=== PATIENT | male | born 1990 | race Caucasian/White ===

== ENCOUNTER 2019-07-03 20:33 | Emergency (ER) | payer SELFPAY ==
[2019-07-03 20:34] VITALS: BP 137/93; PULSE 92; RESP 16; TEMP 36.3; O2SAT 99; BMI 32.9
--- NOTE | 2019-07-03 21:00 | RAD_ITS ---
STUDY: X-RAY - LEFT KNEE REASON FOR EXAM: Male, 29 years old. Pain TECHNIQUE: 4 view(s) of the knee. COMPARISON: None. FINDINGS: Normal visualized distal femur. Normal visualized proximal tibia and fibula. Normal proximal tibiofibular articulation. Normal medial femorotibial compartment. Normal lateral femorotibial compartment. Normal patellofemoral articulation. Trace suprapatellar effusion. The soft tissue structures are unremarkable. RAD/Knee 4 or More Views IMPRESSION: Trace effusion of the knee. Electronically Signed: Rodney Latif DO at 21:12 EDT Tel [phone], Service support ,
--- NOTE | 2019-07-03 21:09 | ED.VISSUMM ---
- ER Visit Summary Date of Service: 07/03/19 Chief Complaint: Left knee pain History of Present Illness: The patient is a 29 M with no primary care physician. He reports he has left knee pain again approximately 5 days ago. He denies any trauma. No fall, MVA, or change in activity. He reports that this is sharp pain when he wakes up in the morning that seems to get better with a few steps. And has a dull pain most of the day. However, he reports that if he steps wrong or goes down the steps his pain is much worse. Pain is 8 out of 10 at worst and 5-10 currently. Physical Examination: Vitals: Stable. Afebrile. General: Well-nourished and well-developed. Head: Normocephalic atraumatic. Neck: Supple, no lymphadenopathy. No JVD. Nontender. Cardiovascular: Regular rate and rhythm. No murmurs. Respiratory: No respiratory distress. Clear to auscultation bilaterally. Abdominal: Soft, nontender, nondistended, normal bowel sounds. No guarding, rebound, or peritoneal signs. Back: Nontender. Extremities: Left knee: No appreciable effusion. He does have mild tenderness palpation over the medial side of his knee. He has full range of motion without difficulty. No pain or ligamentous instability with anterior/posterior drawer or medial/lateral stress. Does have a positive Damián with his foot rotated laterally. Skin: Normal color, no rash. Neurologic: Alert and oriented ?3. Cranial nerves II through XII are intact. Normal strength and sensation. Psych: Normal affect. Test Results: Patient x-ray shows a trace effusion but no fracture. Emergency Department Course and Treatment: The patient was treated with naproxen. He refused crutches. Treatment Plan: Patient will be discharged instructions for Dr. Walker in 1 week if not improving. He was given naproxen for pain. I did have a prolonged discussion to him that it is likely meniscal in origin and that he may need an MRI for further evaluation. Return to the emergency department for any worsening symptoms. Disposition: To home in improved and stable condition. Impression: 1. Left knee pain, acute. This note was generated with [employer] dictation software. It may contain incorrect words, spelling, and punctuation that were not noted in review of the chart prior to signing ED Disposition - Plan for ED Patient: Disposition: Home or Assisted Living Instructions: KNEE PAIN, Uncertain Cause Prescriptions: Naproxen [Naprosyn] 500 mg PO BID #20 tab Prescription Printed Referrals: Sudarshan Walker DO [STAFF PHYSICIAN] - 1 Week if not improving
[2019-07-03 21:17] VITALS: RESP 16; O2SAT 98
== END 2019-07-03 21:16 | disposition home or self-care (01) ==
LOC: ED 21:29
PROVIDERS: Emergency Provider Emergency Medicine
DX: M25.562 Pain in left knee (principal); Z72.0 Tobacco use
CPT/HCPCS: 73564; 99282

== ENCOUNTER 2019-10-25 00:37 | Emergency (ER) | payer SELFPAY ==
[2019-10-25 00:38] VITALS: BP 141/75; PULSE 89; RESP 18; TEMP 36.9; O2SAT 97; BMI 35.9
--- NOTE | 2019-10-25 00:59 | ED.VISSUMM ---
- ER Visit Summary Date of Service: 10/25/19 Chief Complaint: Atraumatic right Achilles pain History of Present Illness: The patient is a 29 M history of tendinitis. Complaining of 4-day history of pain in his right Achilles area. No fall, injury or trauma. No prior history. He is able to walk is more comfortable. He does a lot of walking at work. Denies any calf pain. No swelling. No history of DVT or PE or risk factors. Physical Examination: Young male no acute distress vital signs stable afebrile. HEENT exam unremarkable. Lungs are clear. Heart regular rate and rhythm no murmur. Abdomen soft nontender. He is moving all 4 extremities. Neurovascular intact. Along his right Achilles he has tenderness. Minimal swelling. There is no signs of Achilles rupture. Calf itself is nontender without edema or cords. Right foot is neurovascular intact with full dorsi and plantar flexion. Increased Achilles tendon pain with entire flexion. Is a normal DP pulse. The foot is nontender nonswollen. Neurovascular intact. Test Results: None Emergency Department Course and Treatment: History and exam are consistent with Achilles tendinitis. Treatment Plan: Ice, rest and anti-inflammatories. He has crutches at home. Follow-up if not improving. Disposition: Discharge Impression: Acute right Achilles tendinitis This note was generated with [employer] dictation software. It may contain incorrect words, spelling, and punctuation that were not noted in review of the chart prior to signing ED Disposition - Plan for ED Patient: Referrals: Care Physician,No Primary [Primary Care Provider] -
--- NOTE | 2019-10-25 01:01 | DCINST.ED_ITS ---
ED Disposition - Plan for ED Patient: Disposition: Home or Assisted Living Instructions: Tendonitis Referrals: Palmer De Leon MD [STAFF PHYSICIAN] - 1 Week if not improving Additional Instructions: Ice to your right Achilles. Motrin 600 mg 3-4 times a day for pain and inflammation. Use your home crutches to rest your right Achilles tendon. Follow-up if not improving. If you need a shoulder specialist for your left shoulder Dr. Hubert Nichole at [facility]
[2019-10-25 01:13] VITALS: BP 141/75; PULSE 89; RESP 18; O2SAT 97
== END 2019-10-25 01:14 | disposition home or self-care (01) ==
LOC: ED 01:09
PROVIDERS: Emergency Provider Emergency Medicine
DX: M76.61 Achilles tendinitis, right leg (principal); Z72.0 Tobacco use
CPT/HCPCS: 99282

== ENCOUNTER 2020-01-27 10:37 | Emergency (ER) | payer BC, SELFPAY ==
[2020-01-27 10:38] VITALS: BP 123/77; PULSE 100; RESP 18; TEMP 36.2; O2SAT 100; BMI 33.0
--- NOTE | 2020-01-27 10:56 | RAD_ITS ---
STUDY: X-RAY - LUMBAR SPINE REASON FOR EXAM: Male, 30 years old. LOW BACK PAIN AFTER HEAVY LIFTING X 1 DAY TECHNIQUE: 3 view(s) of the lumbar spine were obtained. COMPARISON: None FINDINGS: There is straightening of the normal lumbar lordosis. There is no substantial scoliosis. There is a normal alignment of the vertebrae. Mild degree of spondylosis at the L3-L4 and L4-L5 levels. Normal disc space heights. The soft tissue structures are unremarkable. RAD/Lumbar Spine 2 or 3 Views IMPRESSION: Loss of the normal lumbar lordosis. Mild degree of spondylosis at the L3-L4 and L4-L5 levels. Electronically Signed: Gilbert Bullock, at 11:40 EDT , Service support ,
--- NOTE | 2020-01-27 10:56 | ED.VIS.GEN ---
History of Present Illness Chief Complaint: Back Informant: Patient Narrative: Patient presents the emergency department with a 1 day history of low back pain. States it began suddenly when he was attempting to push a 400 pound roll of material while at work. He states he felt it immediately. He states it is nonradiating. He denies any bowel or bladder dysfunction. He denies any back surgery. No IV drug use or recent injections. He denies any previous trauma to the back. Past Medical History - Allergies and Home Meds Allergies/Adverse Reactions: Allergies No Known Allergies Allergy (Verified 01/27/20 10:38) Primary Care Physician: Care Physician,No Primary [Primary Care Provider] - Smoking Status: Current every day smoker Review of Systems General: Denies: Chills, Fever, Sweats Eyes: Denies: Visual changes - bilaterally, Diplopia ENT: Denies: Rhinorrhea, Sore throat Cardiovascular: Denies: Chest pain, Palpitations Respiratory: Denies: Dyspnea, Cough, Dyspnea on exertion Gastrointestinal: Denies: Abdominal pain, Nausea, Vomiting, Diarrhea, Melena, Hematochezia Genitourinary: Denies: Dysuria, Hematuria, Frequency Musculoskeletal: Reports: Back pain. Denies: Extremity Pain Skin: Denies: Rash, Wounds Neurological: Denies: Headache, Weakness, Parasthesia, Numbness Physical Exam Vital Signs/Narrative: Vital Signs Temp Pulse Resp BP Pulse Ox 01/27/20 10:38 97.2 F L 100 18 123/77 H 100 Inital Vital Signs reviewed: Yes General: Well nourished, Well developed, No Acute Distress Head: Normocephalic, Atraumatic Eyes: Perrl, EOMI ENT: Moist mucous membranes, No rhinorrhea Neck: Supple, Nontender Cardiovascular: Regular rate, Regular rhythm, No murmurs Respiratory: No distress, CTA bilaterally, Chest nontender Abdomen: Soft, Nontender, Nondistended, Normal bowel sounds Back: - - Patient has tenderness to palpation of the lumbar paraspinal musculature. DTR intact Extremities: Nontender, No edema Skin: Normal color, No rash Neurological: Alert, Oriented x3, Cranial nerves II-XII grossly intact, Normal Strength, Normal Sensation, Normal DTR, - - Patient is pacing around the room occasionally leaning on the sink. Psychological: Normal affect, Normal Mood ED Disposition - Plan for ED Patient: Disposition: Home or Assisted Living Diagnosis: Strain of lumbar paraspinal muscle Instructions: Back Sprain/Strain Prescriptions: Oxycodone HCl/Acetaminophen [Percocet 5/325] 1 tablet PO Q6H PRN PRN 3 Days #12 tablet PRN Reason: Pain Transmission Status: Received by [facility] Ketorolac [Toradol] 10 mg PO Q8H PRN #15 tab PRN Reason: pain Transmission Status: Pending to [facility] [address] Diazepam [Valium] 5 mg PO Q8 PRN #15 tablet PRN Reason: Muscle Spasm Transmission Status: Received by [facility] Referrals: Dennis Cochran MD [STAFF PHYSICIAN] - (call to arrange follow up)
[2020-01-27] MEDS: diazePAM 5 MG Tablet PO (11:07)
[2020-01-27] MEDS: morphine 10 MG/ML Syringe IM (11:08)
[2020-01-27] MEDS: Ketorolac 60 MG/2 ML Vial IM (11:08)
[2020-01-27 12:04] VITALS: BP 120/65; PULSE 74; RESP 18; O2SAT 99
== END 2020-01-27 12:05 | disposition home or self-care (01) ==
LOC: ED 11:11
PROVIDERS: Emergency Provider Emergency Medicine
DX: S39.012A Strain of muscle, fascia and tendon of lower back, initial encounter (principal); F17.200 Nicotine dependence, unspecified, uncomplicated; X50.9XXA Other and unspecified overexertion or strenuous movements or postures, initial encounter
CPT/HCPCS: 72100; 96372; 99282

== ENCOUNTER 2020-08-08 20:20 | Emergency (ER) | payer BC, SELFPAY ==
[2020-08-08 20:20] VITALS: BP 139/87; PULSE 97; RESP 20; TEMP 36.2; O2SAT 99; BMI 33.5
== END 2020-08-08 22:38 | disposition left against medical advice (07) ==
PROVIDERS: Emergency Provider Emergency Medicine
DX: Z53.21 Procedure and treatment not carried out due to patient leaving prior to being seen by health care provider (principal)

== ENCOUNTER 2020-10-08 22:07 | Emergency (ER) | payer BC, SELFPAY ==
[2020-10-08 22:08] VITALS: BP 139/88; PULSE 98; RESP 16; TEMP 36.1; O2SAT 99; BMI 33.9
--- NOTE | 2020-10-08 22:25 | ED.DCSUM_ITS ---
History of Present Illness Chief Complaint: Upper Extremity Injury Informant: Patient Onset: Days - 4 days Context: Gradual Onset Narrative: Patient presents with left shoulder pain worse over the past 4 days. He has a history of chronic left shoulder pain. He reports having an AC joint separation followed by surgery for bone spurs approximately 8 years ago. He states he fell on his shoulder about 2 months after his surgery and has had intermittent pain and spasms in that shoulder since that time. Over the past 4 days has had increased pain. He has not been able to raise his arm above his head or place it behind his back. 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 Past Medical History - Allergies and Home Meds Allergies/Adverse Reactions: Allergies No Known Allergies Allergy (Verified 10/08/20 22:11) Primary Care Physician: Care Physician,No Primary [Primary Care Provider] - Past Medical History: None Surgical History: - - Bone spurs left shoulder Smoking Status: Current every day smoker Review of Systems General: Denies: Chills, Fever Eyes: Denies: Visual changes - bilaterally ENT: Denies: Bilateral ear pain Cardiovascular: Denies: Chest pain Respiratory: Denies: Dyspnea, Cough Gastrointestinal: Denies: Abdominal pain Musculoskeletal: Reports: Extremity Pain Skin: Denies: Rash Neurological: Reports: Parasthesia - Occasional paresthesias, none currently Hematologic: Denies: Easy bruising, Easy bleeding Allergy: Denies: Uticaria Physical Exam Vital Signs/Narrative: Vital Signs Temp Pulse Resp BP Pulse Ox 10/08/20 22:08 97 F L 98 16 139/88 H 99 Inital Vital Signs reviewed: Yes General: Well nourished, Well developed Head: Normocephalic ENT: Moist mucous membranes Neck: Supple Cardiovascular: Regular rate, Regular rhythm Respiratory: No distress, CTA bilaterally Abdomen: Soft, Nontender Extremities: - - Focal tenderness over the AC joint of the left shoulder. Decreased range of motion, only able to abduct left shoulder to 90 degrees. Strong distal pulses. Skin: Normal color Neurological: Alert, Oriented x3, - - Strong hand grasp. Decreased range of motion left shoulder secondary to pain. Psychological: Normal affect Diagnostic/Tx/Re-eval Left shoulder x-rays per my review reveal no acute fracture. Joint spaces are clean with no obvious abnormalities. - Medical Decision Making Patient was given naproxen here for pain. Based on his symptoms I do feel he likely has tenderness or ligamentous injury. He will be given a sling and instructed, to have it a few times a day to work on range of motion. He was referred to Dr. Wallace, on-call for orthopedics. ED Disposition - Plan for ED Patient: Disposition: Home or Assisted Living Diagnosis: Sprain of left shoulder Instructions: ED Shoulder Sprain Prescriptions: Naproxen [Naprosyn] 500 mg PO BID PRN PRN #20 tab PRN Reason: Pain Score 4-10 Transmission Status: Pending to [facility] [facility] Referrals: Mignon Wallace DO [STAFF PHYSICIAN] - As soon as possible
--- NOTE | 2020-10-08 22:30 | RAD_ITS ---
HISTORY: PAIN, NO RECENT INJURY COMPARISON: None FINDINGS: # of images incl. paperwork: 4 XR Shoulder Min 2 Views: Left BONE AND JOINTS: No acute fracture or subluxation. SOFT TISSUES: Unremarkable. No radiopaque foreign body. RAD/Shoulder min 2 Views IMPRESSION: No acute pathology If symptoms persist, repeat study in 10-14 days or sooner if clinically indicate at 2318 Reported and signed by: Ely Long DO Electronically Signed: Eyl Long DO at 23:17 EST Tel , Service support ,
[2020-10-08] MEDS: Naproxen 500 MG Tablet PO (22:38)
== END 2020-10-08 23:16 | disposition home or self-care (01) ==
PROVIDERS: Emergency Provider Emergency Medicine
DX: S43.402A Unspecified sprain of left shoulder joint, initial encounter (principal); F17.200 Nicotine dependence, unspecified, uncomplicated; X58.XXXA Exposure to other specified factors, initial encounter
CPT/HCPCS: 73030; 99283

== ENCOUNTER 2020-10-23 20:00 | Emergency (ER) | payer BC, SELFPAY ==
[2020-10-23 20:01] VITALS: BP 132/74; PULSE 89; RESP 16; TEMP 35.9; O2SAT 99; BMI 32.9
--- NOTE | 2020-10-23 20:43 | RAD_ITS ---
STUDY: X-RAY - RIGHT ELBOW REASON FOR EXAM: Male, 30 years old. right elbow pain after playing tug-a-war with kids yesterday TECHNIQUE: 3 view(s) of the elbow. COMPARISON: None. FINDINGS: Normal visualized humerus, radius and ulna. Normal radiocapitellar and ulnotrochlear articulations. The soft tissue structures are unremarkable. RAD/Elbow min 3 Views IMPRESSION: Normal x-ray examination of the elbow. Electronically Signed: Rodney Latif DO at 22:02 EST Tel [phone], Service support ,
--- NOTE | 2020-10-23 20:45 | ED.VIS.GEN ---
History of Present Illness Chief Complaint: Upper Extremity Injury Informant: Patient Narrative: Patient states that yesterday he was playing with the kids he struck his posterior right elbow causing him pain. He continues to hurt. He is concerned about fracture. Past Medical History - Allergies and Home Meds Allergies/Adverse Reactions: Allergies morphine Adverse Reaction (Verified 10/23/20 20:01) Itching and paranoia Primary Care Physician: Josefina Hill [Primary Care Provider] - 10-14 Days if not better Past Medical History: None Surgical History: noncontributory, - - Bone spurs left shoulder Smoking Status: Current every day smoker Drugs: None Review of Systems General: Denies: Chills, Fever, Sweats Eyes: Denies: Visual changes - bilaterally, Diplopia ENT: Denies: Rhinorrhea, Sore throat Cardiovascular: Denies: Chest pain, Palpitations Respiratory: Denies: Dyspnea, Cough, Dyspnea on exertion Gastrointestinal: Denies: Abdominal pain, Nausea, Vomiting, Diarrhea, Melena, Hematochezia Genitourinary: Denies: Dysuria, Hematuria, Frequency Musculoskeletal: Reports: Extremity Pain. Denies: Back pain Skin: Denies: Rash, Wounds Neurological: Denies: Headache, Weakness, Numbness Physical Exam Vital Signs/Narrative: Vital Signs Temp Pulse Resp BP Pulse Ox 10/23/20 20:01 96.6 F L 89 16 132/74 H 99 Inital Vital Signs reviewed: Yes General: Well nourished, Well developed, No Acute Distress Head: Normocephalic, Atraumatic Eyes: Perrl, EOMI ENT: Moist mucous membranes, No rhinorrhea Neck: Supple, Nontender Cardiovascular: Regular rate, Regular rhythm, No murmurs Respiratory: No distress, CTA bilaterally, Chest nontender Abdomen: Soft, Nontender, Nondistended, Normal bowel sounds Back: Nontender, Normal Inspection Extremities: No edema, Tenderness - Palpation over the right olecranon. No obvious deformity. Neurovascular intact. Full range of motion. Skin: Normal color, No rash Neurological: Alert, Oriented x3, Cranial nerves II-XII grossly intact, Normal Strength, Normal Sensation Psychological: Normal affect, Normal Mood Diagnostic/Tx/Re-eval - Medical Decision Making My interpretation of the 3 view plain view x-rays of the right elbow are negative for fracture. Patient be discharged home with supportive care. ED Disposition - Plan for ED Patient: Disposition: Home or Assisted Living Diagnosis: Contusion of right elbow Instructions: ED Contusion, Elbow Referrals: Josefina Hill [Primary Care Provider] - 10-14 Days if not better
[2020-10-23 21:03] VITALS: RESP 17
== END 2020-10-23 21:03 | disposition home or self-care (01) ==
PROVIDERS: Emergency Provider Emergency Medicine; PCP Family Medicine
DX: S50.01XA Contusion of right elbow, initial encounter (principal); F17.200 Nicotine dependence, unspecified, uncomplicated; X58.XXXA Exposure to other specified factors, initial encounter
CPT/HCPCS: 73080; 99282

== ENCOUNTER 2020-11-09 16:30 | Outpatient (RCR) | payer BC, SELFPAY ==
--- NOTE | 2020-10-13 11:46 | HP.PTEVAL_ITS ---
Patient's Visit Information KEISHA NUNN is a 30 year old M referred to Physical Therapy by Dr. Mignon Wallace DO with a diagnosis of . Date of Evaluation: Physical Therapist: Buddy Currie PT, Cert MDT, OCS - Anticipated Interventions Thank you for the opportunity to evaluate your patient. For Medicare and Medicare HMO plans, please review the plan of care and approve it. It will need to be FAXED BACK to us at [phone] for Medicare purposes. For Medicare only, by signing this I certify the plan of care. Please let me know if there are questions or concerns regarding this plan of care. Physician Signature: Date:____
--- NOTE | 2020-10-13 13:08 | HP.PTEVAL_ITS ---
Patient's Visit Information KEISHA NUNN is a 30 year old M referred to Physical Therapy by Dr. Mignon Wallace DO with a diagnosis of LEFT BICEPS TENDONITIS,CERVICAL RADICULOPATHY. Date of Evaluation: 10/13/20 Physical Therapist: Buddy Currie, PT, Cert MDT, OCS - Visit Plan Frequency: 2x /Week Duration: 4 Weeks Plan: PATEINT PLANS TO SEE DR GÓMEZ FOR CERVICAL AND PT IST BEFORE POSSIBLE MRI OF SHOULDER. PT INTERVENTION US/ESTIM/CP LEFT SHOULDER ,GRADED ROM ,STRENGTHENING RTC/SCAPULAR, POSTURAL EX'S,MANUAL THERAPY G-H JOINT/MANUAL CERVICAL TRACTION ,TRAIL [id number]# - Subjective This 30 y/o male presenst to physical therapy with cercvical radiculopathy and left tendonitis. Patient has no cervical pain but has parathesia/tingling in arm and hand . Patient has had left shoulder pain 17 years . Patient has had shoulder arthroscopic surgery 2011. Patient seen Dr Brady thought cervical radiculopathy with spurs and plans to see Dr Gómez. Dr Brady wants to do MRI of shoulder but wants to try PT . Aggraveting parathesia in hand not specific matbe sitting on couch .Alleviating factors in hand rest. Location pain anterior shoulder. Aggraveting factors in shoulder lifting,activities above 90 degrees,across body ,and job demands. Allevaiting factors rest.Pateint did have do go to Hospital recently because of shoulder pain.Denies NAVAS /tinnutus/nausea. Patient ias able to sleep at night. Patient condition affects QOL and job demands.Patients symptoms affects daily function.Patient did have MRI 2 years ago showed labral tear. SOCAIL: engaged. VOCATION: [employer] - Pain Left Shoulder Pain Intensity (Out of 10): 5 Pain Intensity Range: 10 - Objective POSTURE: rounded shoulders head foward. NEURO: denies parathesia/tingling hand ,reflexes C5-6-7 2/3. PALAPTION: AC ,joint and long head bicep. AROM: shoulder flexion 135 degrres pain,abd 110 degrees pain ,ER 85 degrees pain ER. IR L1. PROM: shoulder flexion 140 degrees pain ,Abduction 125 degrres in scapation. CAPSULAR : mild/md tighness. CERVICAL ROM: flexion min loss lateral flexion min loss,rotation mod loss,extension min mod loss. MMT: RTC 4/5 deltoid 4-/5 - Special Tests C/S Radiculapathy - Left Upper limb tension test: Negative C/S Radiculapathy - Right Upper limb tension test: Negative C/S Radiculapathy - Left Spurlings: Negative C/S Radiculapathy - Right Spurlings: Negative C/S Radiculapathy - Left Cervical distraction: Negative C/S Radiculapathy - Right Cervical distraction: Negative C/S Radiculapathy - Left Relief test: Negative Sharp Andrea: Negative Vertebral Artery Test: Negative Alar Ligament Test: Negative Cervical Sitting: Protrusion - Mechanical Response: No effect Cervical Sitting: Protrusion - Symptoms During Testing: No effect Cervical Sitting: Protrusion - Symptoms After Testing: No effect Cervical Sitting: Retraction - Mechanical Response: No effect Cervical Sitting: Retraction - Symptoms During Testing: No effect Cervical Sitting: Retraction - Symptoms After Testing: No effect Cervical Sitting: Retraction-Extension - Mechanical Response: No effect Cerv Sitting: Retraction-Extension - Symptoms During Testing: No effect Cerv Sitting: Retraction-Extension - Symptoms After Testing: No effect Cervical Sitting: Sidebend Right - Mechanical Response: No effect Cervical Sitting: Sidebend Right - Symptoms During Testing: No effect Cervical Sitting: Sidebend Right - Symptoms After Testing: No effect Cervical Sitting: Sidebend Left - Mechanical Response: No effect Cervical Sitting: Sidebend Left - Symptoms During Testing: No effect Cervical Sitting: Sidebend Left - Symptoms After Testing: No effect Cervical Sitting: Rotation Right - Mechanical Response: No effect Cervical Sitting: Rotation Right - Symptoms During Testing: No effect Cervical Sitting: Rotation Right - Symptoms After Testing: No effect Cervical Sitting: Rotation Left - Mechanical Response: No effect Cervical Sitting: Rotation Left - Symptoms During Testing: No effect Cervical Sitting: Rotation Left - Symptoms After Testing: No effect Cervical Sitting: Flexion - Mechanical Response: No effect Cervical Sitting: Flexion - Symptoms During Testing: No effect Cervical Sitting: Flexion - Symptoms After Testing: No effect L Shoulder External Rotation Lag Test - RC Tear: Negative L Shoulder Supine Impingement Test - RC Tear: Negative L Shoulder Lift Off Test - Subscapular Tear: Negative L Shoulder Neer - Impingement: Positive L Shoulder Pereira Mitchell - Impingement: Positive L Shoulder Speeds Test - Labrum/Biceps: Positive L Shoulder O'Briens - SLAP/A-C: Positive - Goals Goal 1:: Patient to be I with HEP Goal Time Frame: 4-6 Weeks Goal 2:: Patateint to increase AROM shoulder flexion 150 degrres and abuction 145 degrees for activities and job demands. Goal Time Frame: 4-6 Weeks Goal 3:: Patient to decrease left shoulder pain by 60% or > to improve function with LUE for job demands. Goal Time Frame: 4-6 Weeks Goal 4:: Patient to reduce epsiodes of parathesia inleft hand by 50% or > to improve function. Goal Time Frame: 4-6 Weeks Goal 5:: Pateint to improve quick dash by 5 points or> to improbve QOL and job demands. Goal Time Frame: 6-8 Weeks - Rehabilitation Potential Physical Therapy Diagnosis: This patient has h/o labral tear MRI 2 yeaersago and shoulder arthroscopic with current deficits with pain with PROM/AROM affects OH activitis and job demands ,as well as parathesia in left hand but movement tests and postioning doesn increase or decrease parathesia thus benifit from skilled PT Rehabilitation Potential: Good - Anticipated Interventions Patient/Client Instruction: Educate patient on: Condition, Plan of Care For the Purpose of:: To decrease pain, To increase ROM, To improve muscle performance and motor function, To improve ability to perform ADL's, To increase tolerance to activity/condition/position, To improve ability of physical actions for home/community/work/leisure, To improve health of tissue, To decrease soft tissue restriction, To increase flexibility/ROM, To reduce risk of recurrence, To improve ability to perform tasks related to life management Therapeutic Exercise to Include: Strength training, Postural training, Flexibilty training, Passive ROM, Active ROM, Sarah Exercises, Scapular Strength/Stabilization Comment: RTC, For the Purpose of:: To decrease pain, To increase ROM, To improve muscle performance and motor function, To improve ability to perform ADL's, To increase tolerance to activity/condition/position, To improve ability of physical actions for home/community/work/leisure, To improve health of tissue, To decrease soft tissue restriction, To increase flexibility/ROM, To reduce risk of recurrence, To improve ability to perform tasks related to life management Manual Therapy Techniques to Include: Mobilization Comment: G-H JOINT,CERVICAL TRACTION For the Purpose of:: To decrease pain, To increase ROM, To improve nutrient delivery to tissue, To increase oxygenation perfusion, To improve gait and locomotor functions, To improve health of tissue, To decrease soft tissue restriction, To increase flexibility/ROM Thank you for the opportunity to evaluate your patient. For Medicare and Medicare HMO plans, please review the plan of care and approve it. It will need to be FAXED BACK to us at [phone] for Medicare purposes. For Medicare only, by signing this I certify the plan of care. Please let me know if there are questions or concerns regarding this plan of care. Physician Signature: Date:
--- NOTE | 2021-04-17 13:25 | HP.PTDCSUM ---
It has been my pleasure to treat KEISHA NUNN referred by Dr. Mignon Wallace DO, with the diagnosis of LEFT BICEPS TENDONITIS,CERVICAL RADICULOPATHY for a total of 10 visit(s). Discharge Date: Please see the following information for a summary of their discharge status. Subjective: Patient states symptoms are worse from prevoius pop in shoulder. Plan to see DR Va Cunningham Left Shoulder Pain Intensity (Out of 10): 6 L hand Pain Intensity (Out of 10): 0 % Improvement: 10 Objective/Function: Patient has liimited AROM shoulder flexion 100 degrees and abd 90 degrees painfull,. mmt: rtc 4-/5 painfull deltoid b3+/5 pain Goal 1:: Patient to be I with HEP Goal 2:: Patateint to increase AROM shoulder flexion 150 degrres and abuction 145 degrees for activities and job demands. Goal 3:: Patient to decrease left shoulder pain by 60% or > to improve function with LUE for job demands. Goal 4:: Patient to reduce epsiodes of parathesia inleft hand by 50% or > to improve function. Goal 5:: Pateint to improve quick dash by 5 points or> to improbve QOL and job demands. Plan: rtd If there are questions or concerns regarding this patient's physical therapy, please feel free to call me at [phone]. Thank you for the referral of this patient. Sincerely, Buddy Currie, PT, Cert MDT, OCS
== END 2020-11-09 19:00 | disposition home or self-care (01) ==
LOC: PT 16:30
PROVIDERS: Referring Provider Orthopaedic Surgery; Visit Provider Orthopaedic Surgery
DX: M54.12 Radiculopathy, cervical region (principal); M75.22 Bicipital tendinitis, left shoulder
CPT/HCPCS: 97012; 97014; 97035; 97110; 97140; 97162; G0283

== ENCOUNTER → 2020-11-29 09:29 | Outpatient (CLI) | payer BC, SELFPAY ==
--- NOTE | 2020-11-29 09:36 | RAD_ITS ---
CLINICAL HISTORY: Male, 30 years old. Left shoulder pain with numbness and tingling. PROCEDURE: ARTHROGRAM - LEFT SHOULDER CONSENT: The procedure as well as the benefits and possible complications including bleeding and infection were explained to the patient. Informed consent was obtained. FLUOROSCOPY TIME (if supplied): (80 seconds) minutes/seconds Injection Information: 10 cc of dilute Doteram Number of images obtained: 4 TECHNIQUE: (All elements of maximal sterile barrier technique followed, including US elements as applicable) The patient was in the supine position. Overlying skin was prepped and draped in usual sterile fashion. Following local anesthetic application and under direct fluoroscopic guidance, a 22-gauge spinal needle was placed into the shoulder joint. 2 cc of ISOVUE 300 was injected for confirmation. Following this, 10 cc of dilute MRI contrast was injected. The patient tolerated the procedure well. RAD/Arthrogram Shoulder w/ MRI IMPRESSION: Successful left shoulder arthrogram for MRI examination. The patient tolerated the procedure well. Electronically Signed: Gilbert Bullock MD at 10:59 EST , Service support ,
--- NOTE | 2020-11-29 11:30 | MRI_ITS ---
STUDY: MR LEFT SHOULDER ARTHROGRAPHY REASON FOR EXAM: Left shoulder pain, limited range of motion, numbness extending down arm. TECHNIQUE: Standardized fat and water weighted pulse sequences were obtained in all 3 orthogonal planes after intra-articular instillation of dilute Dotarem. COMPARISON: Radiographs 10/08/2020. FINDINGS: Normal supraspinatus tendon. Normal infraspinatus tendon. Normal subscapularis tendon. Normal teres minor tendon. Normal supraspinatus muscle. Normal infraspinatus muscle. Normal subscapularis muscle. Normal teres minor muscle. Normal glenohumeral articulation. Normal humeral head and visualized proximal humerus. There is a SLAP lesion (T1 coronal images 8-10; T1 axial image 7). Normal intracapsular long biceps tendon. Normal capsulo- ligamentous complex. Normal rotator interval. There is mild iatrogenic edema superficial to the subscapularis recess. There is no substantial acromioclavicular arthrosis. Status post subacromial decompression. There is no subacromial-subdeltoid bursal fluid. Normal deltoid muscle. Normal trapezius muscle. MRI/Upper Ext Jt Only W/Contrast IMPRESSION: SLAP lesion. Electronically Signed: David Pierson MD at 12:56 EST Tel , Service support ,
== END ==
LOC: RAD 09:33
PROVIDERS: PCP Family Medicine; Visit Provider Orthopaedic Surgery
DX: M54.2 Cervicalgia (principal); S43.439A Superior glenoid labrum lesion of unspecified shoulder, initial encounter
CPT/HCPCS: 23350; 73222; 77002; Q9967; A9575

== ENCOUNTER → 2020-12-05 08:59 | Outpatient (CLI) | payer BC, SELFPAY ==
--- NOTE | 2020-12-05 10:09 | NEURO_ITS ---
NCS and/or EMG Patient Report Ordering Doctor: Mignon Wallace DATE OF SERVICE: 12/05/20 Indication: Intermittent pain and tingling in the left hand (medial and lateral aspects independently). Periods of normal sensation in between. Multiple orthopedic issues involving the left shoulder (e.g. biceps tendon tear, bursitis). Evaluate for peripheral nerve injury and/or cervical radiculopathy. Findings: Nerve conduction studies were performed in the left upper extremity. The left median motor study recording the abductor pollicis brevis showed a normal amplitude, normal distal latency and normal conduction velocity. The left ulnar motor study recording the abductor digiti minimi showed a normal amplitude, nor mal distal latency and normal conduction velocity. No conduction block or focal slowing was present across the elbow. The left median sensory response recording digit two showed a mildly reduced amp litude, normal latency and normal conduction velocity. The left ulnar sensory response recording digit five showed a normal amplitude, latency and conduction velocity. The left radial sensory response recording over the extensor snuff box showed a normal amplitude, latency and conduction velocity. Left median mixed palmar latencies showed a normal median latency across the wrist. Needle EMG of the left upper extremity and cervical paraspinal muscles was performed. No denervation was seen in any muscle. All motor unit morphology, activation and recruitment patterns were normal. Impression: This is a borderline abnormal study. There is electrophysiologic evidence suggestive, but not diagnostic of, an isolated, mild, non-localizable, left sensory median neuropathy. A neuromuscular ultrasound of the left median nerve could be considered for further diagnostic support and localization. In addition, there is no electrophysiologic evidence of a left cervical radiculopathy. Please note: the electrodiagnosis of radiculopathy is made on the basis of excluding peripheral nerve lesions on nerve conduction studies and the needle EMG demonstrating denervation and/or reinnervation in the distribution of one or more nerve roots (i.e., acute and/or chronic axonal loss). Thus, electrodiagnostic studies are insensitive in detecting radiculopathy in the absence of axonal loss (e.g., in the setting of compression resulting in intermittent ischemia or mechanical deformation; or demyelination without axonal loss). Thus, clinical correlation is required in the interpretation of this negative electrodiagnostic study for radiculopathy. Brett Fitzpatrick D.O.
== END ==
LOC: PSN 09:00
PROVIDERS: PCP Family Medicine; Referring Provider Orthopaedic Surgery; Visit Provider Orthopaedic Surgery
DX: S43.439A Superior glenoid labrum lesion of unspecified shoulder, initial encounter (principal); M54.2 Cervicalgia
CPT/HCPCS: 95886; 95910

== ENCOUNTER 2020-12-22 08:38 | Emergency (ER) | payer BC, SELFPAY ==
[2020-12-22 08:39] VITALS: BP 115/76; PULSE 78; RESP 20; TEMP 36.4; O2SAT 100; BMI 36.6
--- NOTE | 2020-12-22 09:04 | EKG12_ITS ---
Test Reason : DIZZINESS Blood Pressure : / mmHG Vent. Rate : 078 BPM Atrial Rate : 078 BPM P-R Int : 146 ms QRS Dur : 088 ms QT Int : 372 ms P-R-T Axes : 042 067 030 degrees QTc Int : 424 ms Normal sinus rhythm Normal ECG Confirmed by ROBBY JUNE, GEM ([id number]), society editor JACKSON ALONZO ([id number]) on 12/26/2020 12:29:51 P M Referred By: FLOWER Confirmed By:BRIANA BUSTAMANTE MD
[2020-12-22 09:19] VITALS: BP 104/73; BP 111/67; BP 118/70; PULSE 75; PULSE 83; PULSE 91
[2020-12-22 09:30] LABS: D-Dimer Quantitative (DVT/PE) <= 0.27 FEU/ug/m (0.27-0.49)
--- NOTE | 2020-12-22 09:32 | ED.VIS.GEN ---
History of Present Illness Chief Complaint: Dizziness Informant: Patient Onset: Today Context: Sudden Onset Timing: Continuous Narrative: Patient is a 30-year-old male that denies any past medical history presenting with dizziness. Patient states he feels like he is going to pass out and his legs are weak. He states he tried to get out of bed this morning but his legs just gave out from underneath him. He feels lightheaded. He denies any spinning sensation. Denies any vision changes. He notes that his feet felt numb this morning when he woke up without his since resolved. He denies associated chest pain, palpitations, abdominal pain, nausea, vomiting or any other systemic symptoms. He denies any ringing in his ears. His significant other called and states that patient does drink a large amount of energy drinks on a regular basis. She is unsure if this is related. Patient has a smart watch that also checks his blood pressure. It normally runs between 130-140 systolic. Patient denies any other complaints at this time. He is not on any medications. Past Medical History - Allergies and Home Meds Allergies/Adverse Reactions: Allergies morphine Adverse Reaction (Verified 12/22/20 08:43) Itching and paranoia Primary Care Physician: Josefina Hill [Primary Care Provider] - Past Medical History: None Surgical History: noncontributory, - - Bone spurs left shoulder Lives: Spouse/ Significant Other Smoking Status: Current every day smoker Review of Systems General: Reports: - - Dizziness. Denies: Chills, Fever, Sweats Eyes: Denies: Visual changes - bilaterally, Diplopia ENT: Denies: Rhinorrhea, Sore throat Cardiovascular: Denies: Chest pain, Palpitations Respiratory: Denies: Dyspnea, Cough, Dyspnea on exertion Gastrointestinal: Denies: Abdominal pain, Nausea, Vomiting, Diarrhea, Melena, Hematochezia Genitourinary: Denies: Dysuria, Hematuria, Frequency Musculoskeletal: Denies: Back pain, Extremity Pain Skin: Denies: Rash, Wounds Neurological: Reports: Weakness - Lower extremities. Denies: Headache, Numbness Physical Exam Vital Signs/Narrative: Vital Signs Temp Pulse Pulse Pulse Pulse Resp BP 12/22/20 09:19 83 91 75 12/22/20 08:39 97.5 F L 78 20 H 115/76 BP BP BP Pulse Ox 12/22/20 09:19 111/67 118/70 104/73 02/11/21 08:39 100 Inital Vital Signs reviewed: Yes General: Well nourished, Well developed, No Acute Distress Head: Normocephalic, Atraumatic Eyes: Perrl, EOMI, - - No nystagmus ENT: Moist mucous membranes, No rhinorrhea, TM's clear Neck: Supple, Nontender, No JVD Cardiovascular: Regular rate, Regular rhythm, No murmurs, - - Equal strong pulses in all extremities Respiratory: No distress, CTA bilaterally, Chest nontender Abdomen: Soft, Nontender, Nondistended, Normal bowel sounds Back: Nontender, Normal Inspection Extremities: Nontender, No edema Skin: Normal color, No rash Neurological: Alert, Oriented x3, Cranial nerves II-XII grossly intact, Normal Strength, Normal Sensation Psychological: Normal affect, Normal Mood Diagnostic/Tx/Re-eval Chest X-Ray - ED: 1 View, Read by ED Physician, Read by Radiologist, No Acute Disease Clinical Impression(s) from Imaging Studies Chest X-Ray 12/22/20 09:40 IMPRESSION: Normal x-ray examination of the chest. Electronically Signed: Elliot Maddox MD at 9:59 EST Tel , Service support , Laboratory Data 12/22/20 12/22/20 12/22/20 08:50 08:50 08:50 WBC 7.2 RBC 4.74 Hgb 13.8 Hct 40.8 MCV 86.1 MCH 29.1 MCHC 33.8 RDW Std Deviation 39.8 RDW Coeff of Roya 12.6 Plt Count 189 MPV 11.0 Immature Gran % (Auto) 0.300 Neut % (Auto) 60.2 Lymph % (Auto) 30.9 [place] % (Auto) 6.3 Eos % (Auto) 1.9 Baso % (Auto) 0.4 Absolute Neuts (auto) 4.3 Absolute Lymphs (auto) 2.22 Nucleated RBC % 0 D-Dimer Quant (PE/DVT) <= 0.27 Sodium 141 Potassium 3.8 Chloride 109 H Carbon Dioxide 27.0 Anion Gap 5 BUN 14 Creatinine 0.91 Estim Creat Clear Calc 118.70 Est GFR (MDRD) Af Amer 126 Est GFR (MDRD) Non-Af 104 BUN/Creatinine Ratio 15.5 Glucose 89 Calcium 8.5 Magnesium 2.5 Troponin I < 0.015 Urine Color Urine Clarity Urine pH Ur Specific [place] Urine Protein Urine Glucose (UA) Urine Ketones Urine Occult Blood Urine Nitrite Urine Bilirubin Urine Urobilinogen Ur Leukocyte Esterase Urine RBC Urine WBC Ur Squamous Epith Cells Urine Bacteria Urine Mucus 12/22/20 11:16 WBC RBC Hgb Hct MCV MCH MCHC RDW Std Deviation RDW Coeff of Roya Plt Count MPV Immature Gran % (Auto) Neut % (Auto) Lymph % (Auto) [place] % (Auto) Eos % (Auto) Baso % (Auto) Absolute Neuts (auto) Absolute Lymphs (auto) Nucleated RBC % D-Dimer Quant (PE/DVT) Sodium Potassium Chloride Carbon Dioxide Anion Gap BUN Creatinine Estim Creat Clear Calc Est GFR (MDRD) Af Amer Est GFR (MDRD) Non-Af BUN/Creatinine Ratio Glucose Calcium Magnesium Troponin I Urine Color Yellow Urine Clarity Clear Urine pH 6.5 Ur Specific [place] 1.015 Urine Protein Negative Urine Glucose (UA) Normal Urine Ketones Negative Urine Occult Blood Negative Urine Nitrite Negative Urine Bilirubin Negative Urine Urobilinogen Normal Ur Leukocyte Esterase 25 H Urine RBC 0 SEEN Urine WBC 0-5 SEEN Ur Squamous Epith Cells 0 SEEN Urine Bacteria 0 SEEN Urine Mucus 1+ - Rhythm Strip Rhythm Strip: Sinus Rhythm Rate: 78 Ectopy: None - EKG Initial EKG Interpretation: Sinus Rhythm, - - Normal sinus rhythm at a rate of 78 Normal intervals Normal axis Normal ST segments - Medical Decision Making Patient is evaluated for an episode of dizziness/lightheadedness this morning. His symptoms are currently improved. Patient peers nontoxic and has a normal physical exam. His vital signs are normal. Orthostatic vital signs are normal. Patient is given a liter of IV fluids in the ER. While this to be atypical, D-dimer is obtained for concern of PE. It is normal. I do not think a CTA is indicated. Patient's history does not sound ACS. His troponin is normal and so is his EKG. He does not have any obvious source of infection that could be causing his symptoms. He is not having electrolyte abnormalities. Patient does drink at least 5 x 24 ounce energy drinks a day this might be causing his symptoms. He is instructed to limit his energy drink intake/caffeine intake. He is given primary care to follow-up. Patient is counseled on signs and symptoms requiring return to the emergency room. Patient verbalizes agreement and understand this plan. Patient discharged home in stable and improved condition. ED Disposition - Plan for ED Patient: Disposition: Home or Assisted Living Diagnosis: Dizziness, Adverse effect of caffeine Instructions: ED Dizziness, Uncertain Cause Referrals: Josefina Hill [Primary Care Provider] - Additional Instructions: Limit your caffeine intake. The exact cause of your symptoms is not clear today however I think you are stable to follow-up with your primary care doctor. Call to make an appointment within the next week.
[2020-12-22] MEDS: 0.9% Normal Saline 1,000 ML 1000 ML IV (09:34)
[2020-12-22 09:35] LABS: BUN 14 mg/dL (7-18); BUN/Creat Ratio 15.5 RATIO (10-20); Calcium,Total 8.5 mg/dL (8.5-10.1); Chloride 109 mmol/L (98-107); Creatinine, Serum 0.91 mg/dL (0.70-1.30); EST Glomerular Filtration Rate 104 mL/min (>60); Est Glom Filt Rate - Afr Amer 126 mL/min (>60); Glucose 89 mg/dL (74-106); Magnesium 2.5 mg/dL (1.6-2.6); Potassium 3.8 mmol/L (3.5-5.1); Sodium Level 141 mmol/L (136-145)
[2020-12-22 09:36] LABS: Anion Gap 5 (5-15)
--- NOTE | 2020-12-22 09:40 | RAD_ITS ---
STUDY: X-RAY CHEST REASON FOR EXAM: Male, 30 years old. DIZZINESS TECHNIQUE: Single AP portable view of the chest. COMPARISON: None. FINDINGS: The lungs are clear and expanded. There is no demonstrated pleural abnormality. Normal size heart. Normal mediastinum and inna. Normal visualized pulmonary arteries. Normal visualized aortic arch and descending thoracic aorta. Normal visualized thoracic spine. Normal visualized ribs, clavicles, and shoulders. There is no demonstrated abnormality of the visualized soft tissue structures of the upper abdomen. RAD/Chest 1 View (Portable) IMPRESSION: Normal x-ray examination of the chest. Electronically Signed: Elliot Maddox MD at 9:59 EST Tel , Service support ,
[2020-12-22 10:07] LABS: Absolute Lymphocyte Count 2.22 X10^3/uL (0.83-4.51); Absolute Neutrophil Count 4.3 X10^3/uL (2.0-7.7); Basophil# 0.03 X10^3/uL; Basophil% 0.4 % (0-1); Eosinophil# 0.14 X10^3/uL; Eosinophils% 1.9 % (0-5); Hematocrit 40.8 % (40-54); Hemoglobin 13.8 g/dL (13.0-16.5); Lymphocyte # 2.22 X10^3/ul (4.0); Lymphocyte % 30.9 % (19-41); Mean Corp Hgb Conc 33.8 g/dL (32-36); Mean Corpuscular Hgb 29.1 pg (27.0-32.0); Mean Corpuscular Volume 86.1 fL (80-94); Monocyte# 0.45 X10^3/uL; Monocyte% 6.3 % (0-10); NRBC Flagged by Analyzer 0 % (0-5); Neutrophil # 4.33 X10^3/uL (2.7-7.7); Neutrophil % 60.2 % (47-70); Platelet Count 189 K/mm3 (150-450); RBC Distribution Width CV 12.6 % (11.6-14.6); RBC Distribution Width SD 39.8 fl (35.1-43.9); Red Blood Count 4.74 M/mm3 (4.6-6.2); White Blood Count 7.2 K/mm3 (4.4-11.0)
[2020-12-22 11:38] LABS: Bacteria 0 SEEN /hpf (None Seen); Red Blood Cells-Urine 0 SEEN /hpf (0-5); Squamous Epithelial Cells - UA 0 SEEN /hpf (0-5)
[2020-12-22 11:52] VITALS: BP 112/70; PULSE 69; RESP 16; O2SAT 99
[2020-12-22 11:53] LABS: Color, Urine Yellow (Yellow); Glucose, Dipstick Normal (Normal); Ketone-Dipstick Negative (Negative); Leukocyte Esterase-Dipstick 25 /ul (Negative); Nitrite-Dipstick Negative (Negative); Occult Blood-Urine Negative /ul (Negative); Protein-Dipstick Negative (Negative); Specific Gravity, Urine 1.015 (1.002-1.030); Urine Bilirubin Dipstick Negative (Negative); Urine Clarity Clear (Clear); Urine Urobilinogen Normal (Normal); Urine pH 6.5 (5.0 - 8.0)
[2020-12-22 12:00] LABS: Mucous, Urine 1+ /hpf (<or=2+); White Blood Cells 0-5 SEEN /hpf (0-5)
== END 2020-12-22 13:41 | disposition home or self-care (01) ==
PROVIDERS: Emergency Provider Emergency Medicine; PCP Family Medicine
DX: R42 Dizziness and giddiness (principal); T43.615A Adverse effect of caffeine, initial encounter; F17.200 Nicotine dependence, unspecified, uncomplicated
CPT/HCPCS: 71045; 80048; 81001; 83735; 84484; 85025; 85379; 93005; 99285; A4216

== ENCOUNTER 2021-01-03 10:26 | Outpatient (RCR) | payer BC, SELFPAY ==
--- NOTE | 2021-01-03 11:15 | HP.PTEVAL ---
Patient's Visit Information KEISHA NUNN is a 30 year old M referred to Physical Therapy by Josefina Hill with a diagnosis of BPPV. Date of Evaluation: 01/03/21 Physical Therapist: Selvin Dhaliwal, DPT, OCS, CSCS - Visit Plan Plan: No treatment required as pt is 100% better for the last 3 days. He will call in the next two weeks if he has any recurrence. Otherwise will see doctor as needed.(including today) - Subjective 2 weeks ago woke up sitting up and got superdizzy adn laid right back down. Lasted 15 minutes. Dizzy went away but legs gave out/hard to walk. Rolling in bed or getting up out of bed or looking then caused dizzyness lasting a minute at most. [place] OK in between spells. Diagnosed with BPPV. Now 3 days of no dizzyness. Needs surgery on torn biceps tendon which was postponed due to this dizzyness. Activities are normal for the last 3 [address]. Last 3 days 100% better. Prior 9 days was daily dizzyness. - Objective Walks normal adn safe adn I back to PT eval. Trasnfers without UE. Steps I without rail. - B hallpike gustavo. - roll test. Oculomotor is unremarkable today without nystagmus with gaze ro head shake. Pursuit, saccadesa dn VOR are all normal. - skew eye deviation. - ocular tilt. MSQ positions cause no symptoms. - Goals Goal 1:: Dizzyness abolished 100% for two weeks. Goal Time Frame: 2-4 Weeks - Rehabilitation Potential Physical Therapy Diagnosis: Resoved BPPV likely Rehabilitation Potential: Good - Anticipated Interventions Patient/Client Instruction: Educate patient on: Condition, Plan of Care Other: abolish dizzyness Comment: postiional and vestibular if dizzyness returns. For the Purpose of:: To increase tolerance to activity/condition/position Thank you for the opportunity to evaluate your patient. For Medicare and Medicare HMO plans, please review the plan of care and approve it. It will need to be FAXED BACK to us at [phone] for Medicare purposes. For Medicare only, by signing this I certify the plan of care. Please let me know if there are questions or concerns regarding this plan of care. Physician Signature: Date:
== END 2021-01-03 19:00 | disposition home or self-care (01) ==
LOC: PT 10:26
PROVIDERS: PCP Family Medicine; Referring Provider Family Medicine; Visit Provider Family Medicine
DX: H81.13 Benign paroxysmal vertigo, bilateral (principal)
CPT/HCPCS: 97161